=== PATIENT | female | born 1950 | race Caucasian/White ===

== ENCOUNTER → 2018-05-03 | Outpatient (CLI) | payer MEDICARE, MEDICAID ==
[2018-05-03 08:17] LABS: Basophils # (auto) 0.3 uL; Basophils % (auto) 2.6 % (0.0-2.0); Eosinophils # (auto) 0.1 uL; Eosinophils % (auto) 1.2 % (0.0-7.0); Hematocrit 47.3 % (36.0-46.0); Hemoglobin 15.4 g/dL (12.2-16.2); Lymphocytes # (auto) 2.3 uL; Lymphocytes % (auto) 20.4 % (10.0-50.0); Mean Corpuscular Hemoglobin 29.9 pg (28.0-32.0); Mean Corpuscular Hgb Conc. 32.5 g/dL (32.0-36.0); Monocytes # (auto) 0.7 uL; Monocytes % (auto) 5.8 % (0.0-12.0); Platelet Count (auto) 313 10^3/uL (140-450); Red Blood Cells 5.14 10^6/uL (4.0-5.20); Red Cell Distribution Width 14.9 % (11.8-14.3); White Blood Cell 11.4 10^3/uL (4.4-10.8)
[2018-05-03 08:56] LABS: Albumin 3.4 g/dL (3.4-5.0); BUN/Creatinine Ratio 14.8; Bilirubin, Total 0.4 mg/dL (0.2-1.0); Calcium 9.3 mg/dL (8.5-10.1); Potassium 3.8 mmol/L (3.5-5.1); Total Protein 7.4 g/dL (6.4-8.2)
[2018-05-03 09:15] LABS: Urine Bacteria FEW /hpf (None Seen); Urine Blood TRACE /uL (Negative); Urine Mucus FEW (None Seen); Urine Specific Gravity 1.028 (1.001-1.035); Urine WBC 20 /hpf (0 - 5)
[2018-05-04 09:08] LABS: Free T4 (Free Thyroxine) 0.84 ng/dL (0.89-1.76)
== END | disposition home or self-care (01) ==
LOC: LAB 07:30
PROVIDERS: ATTEND Internal Medicine
DX: I12.9 Hypertensive chronic kidney disease with stage 1 through stage 4 chronic kidney disease, or unspecified chronic kidney disease (principal); E11.22 Type 2 diabetes mellitus with diabetic chronic kidney disease; N18.3 Chronic kidney disease, stage 3 (moderate)
CPT/HCPCS: 36415; 80053; 80061; 81001; 82043; 82607; 83036; 84439; 84443; 84550; 85025; 85652

== ENCOUNTER → 2018-06-09 | Outpatient (CLI) | payer MEDICARE, MEDICAID | END | disposition home or self-care (01) | LOC: XYW 07:35 | PROVIDERS: ATTEND Internal Medicine | DX: I11.0 Hypertensive heart disease with heart failure (principal); I50.9 Heart failure, unspecified | CPT/HCPCS: 93306 ==

== ENCOUNTER → 2018-06-10 | Outpatient (CLI) | payer MEDICARE, MEDICAID | END | disposition home or self-care (01) | LOC: RT 12:17 | PROVIDERS: ATTEND Internal Medicine | DX: J44.9 Chronic obstructive pulmonary disease, unspecified (principal); I11.0 Hypertensive heart disease with heart failure; J96.10 Chronic respiratory failure, unspecified whether with hypoxia or hypercapnia; I50.9 Heart failure, unspecified | CPT/HCPCS: 36600; 82805 ==

== ENCOUNTER → 2018-07-05 | Outpatient (CLI) | payer MEDICARE, MEDICAID | END | disposition home or self-care (01) | LOC: XY 09:06 | PROVIDERS: ATTEND Internal Medicine Pulmonary Disease | DX: R06.02 Shortness of breath (principal) | CPT/HCPCS: 78582; A9540; A9558 ==

== ENCOUNTER 2018-10-15 10:47 | Emergency (ER) | payer OTHER, MEDICAID ==
[~2018-10-15] VITALS: Ht 165.1 cm; Wt 85.3 kg
[2018-10-15 12:04] LABS: Basophils # (auto) 0.1 uL; Basophils % (auto) 0.7 % (0.0-2.0); Eosinophils # (auto) 0.1 uL; Eosinophils % (auto) 0.6 % (0.0-7.0); Hematocrit 43.6 % (36.0-46.0); Hemoglobin 14.1 g/dL (12.2-16.2); Lymphocytes # (auto) 1.4 uL; Lymphocytes % (auto) 9.4 % (10.0-50.0); Mean Corpuscular Hgb Conc. 32.4 g/dL (32.0-36.0); Mean Corpuscular Volume 89.6 fL (80.0-100.0); Monocytes % (auto) 6.5 % (0.0-12.0); Neutrophils # (auto) 12.3 uL; Neutrophils % (auto) 82.8 % (37.0-80.0); Nucleated Red Blood Cells % 0.1 %; Platelet Count (auto) 295 10^3/uL (140-450); Red Blood Cells 4.87 10^6/uL (4.0-5.20); Red Cell Distribution Width 14.6 % (11.8-14.3); White Blood Cell 14.9 10^3/uL (4.4-10.8)
[2018-10-15 12:25] LABS: Anion Gap 9 (5-15); BUN/Creatinine Ratio 16.6; Blood Alcohol < 3.0 mg/dL (0-5); Blood Urea Nitrogen 24 mg/dL (7-18); Calcium 9.2 mg/dL (8.5-10.1); Carbon Dioxide 23 mmol/L (21-32); Chloride 107 mmol/L (98-107); GFR African American 46 mL/min; GFR Non-African American 38 mL/min; Glucose 115 mg/dL (74-106); Sodium 139 mmol/L (136-145)
[2018-10-15 12:26] LABS: Salicylate < 1.7 mg/dL (2.8-20.0)
[2018-10-15 12:29] LABS: Acetaminophen < 2.0 ug/mL (10-30)
[2018-10-15] MEDS ORDERED: ZOLPIDEM TARTRATE 5 MG TAB PO ONE (13:45)
[2018-10-15 14:06] LABS: Alcohol, Urine < 3.0 mg/dL (0-5); Amphetamine Screen, Urine NEGATIVE (NEGATIVE); Barbiturate Scree,Urine NEGATIVE (NEGATIVE); Benzodiazephine Screen, Urine NEGATIVE (NEGATIVE); Cannabinoid Screen, Urine NEGATIVE (NEGATIVE); Cocaine Screen, Urine NEGATIVE (NEGATIVE); Opiate Scree,Urine NEGATIVE (NEGATIVE); Phencyclidine Screen, Urine NEGATIVE (NEGATIVE)
[2018-10-15] MEDS ORDERED: SERT-160 PO (19:55)
[2018-10-15] MEDS ORDERED: PRAV20TA3 PO (19:55)
[2018-10-15] MEDS ORDERED: LISI40TA PO (19:55)
[2018-10-15] MEDS ORDERED: AMLO5TAB13 PO (19:55)
[2018-10-15] MEDS ORDERED: CALC667C PO (19:55)
[2018-10-15] MEDS ORDERED: INSLANTI SC (19:55)
[2018-10-15] MEDS ORDERED: FURO40TA PO (19:55)
[2018-10-15] MEDS ORDERED: GABA300C10 PO (19:55)
[2018-10-15] MEDS ORDERED: INSUINJ18 SC (19:55)
[2018-10-15] MEDS ORDERED: ASPI81CH43 PO (19:55)
[2018-10-15] MEDS ORDERED: GLIP-116 PO (19:55)
[2018-10-15] MEDS ORDERED: CHOL20007 OR (19:55)
[2018-10-15] MEDS ORDERED: glipiZIDE 5 MG TAB PO ONE (22:15)
[2018-10-15] MEDS ORDERED: HYDROcodone-ACET 10/325MG TAB PO ONE (22:15)
[2018-10-15] MEDS ORDERED: ASPirin 81 mg TAB PO ONE (22:15)
[2018-10-15] MEDS ORDERED: INSULIN LANTUS (GLARGINE) 1 /0.01ml (100units/ml) SC ONE (22:15)
[2018-10-16] MEDS ORDERED: IBUPROFEN 800 MG TAB PO ONE (06:30)
[2018-10-16] MEDS ORDERED: HALOPERIDOL 1 MG TAB PO SCH (12:00)
[2018-10-16 15:56] VITALS: BP 177/83
[2018-10-16] MEDS ORDERED: PRAVASTATIN SODIUM 20 MG TAB PO SCH (22:00)
[2018-10-16] MEDS ORDERED: QUEtiapine FUMARATE 25 MG TAB PO SCH (22:00)
[2018-10-16] MEDS ORDERED: HALOPERIDOL 5 MG TAB PO SCH (22:00)
== END 2018-10-15 16:12 | disposition short-term general hospital (02) ==
LOC: ER 10:47 → EDBD 10:47 → ER 16:12
DX: R45.851 Suicidal ideations (principal); E11.22 Type 2 diabetes mellitus with diabetic chronic kidney disease; I12.9 Hypertensive chronic kidney disease with stage 1 through stage 4 chronic kidney disease, or unspecified chronic kidney disease; N18.9 Chronic kidney disease, unspecified; J44.9 Chronic obstructive pulmonary disease, unspecified; Z87.891 Personal history of nicotine dependence; Z88.0 Allergy status to penicillin
CPT/HCPCS: 36415; 73660; 80048; 80307; 80320; 80329; 82962; 85025; 94761; 99285; J1815

== ENCOUNTER 2019-10-01 14:14 | Emergency (ER) | payer MEDICAID, MEDICARE, OTHER ==
[~2019-10-01] VITALS: Ht 165.1 cm; Wt 127.0 kg
[~2019-10-01 14:14] MED LIST: AMLO5TAB15 PO; ASPI81CH43 PO; CALC667C PO; CHOL20007 OR; FURO1TAB31 PO; GABA300C10 PO; GLIP10TA9 PO; INSLANTI SC; INSUINJ18 SC; LISI40TA PO; PRAV20TA3 PO; SERT-160 PO
[2019-10-01 16:09] LABS: Basophils # (auto) 0.1 uL; Basophils % (auto) 1.2 % (0.0-2.0); Eosinophils # (auto) 0.1 uL; Eosinophils % (auto) 0.9 % (0.0-7.0); Hematocrit 47.2 % (36.0-46.0); Hemoglobin 15.7 g/dL (12.2-16.2); Lymphocytes % (auto) 16.4 % (10.0-50.0); Mean Corpuscular Hemoglobin 31.6 pg (28.0-32.0); Mean Corpuscular Hgb Conc. 33.3 g/dL (32.0-36.0); Mean Corpuscular Volume 94.9 fL (80.0-100.0); Monocytes # (auto) 0.7 uL; Monocytes % (auto) 5.4 % (0.0-12.0); Neutrophils # (auto) 9.1 uL; Neutrophils % (auto) 76.1 % (37.0-80.0); Nucleated Red Blood Cells % 0.1 %; Platelet Count (auto) 322 10^3/uL (140-450); Red Blood Cells 4.98 10^6/uL (4.0-5.20); Red Cell Distribution Width 13.1 % (11.8-14.3)
[2019-10-01 16:24] LABS: Albumin 3.6 g/dL (3.4-5.0); Calcium 9.9 mg/dL (8.5-10.1); Potassium 4.3 mmol/L (3.5-5.1)
[2019-10-01 16:29] LABS: BUN/Creatinine Ratio 14.1; Bilirubin, Total 0.2 mg/dL (0.2-1.0); Total Protein 7.5 g/dL (6.4-8.2)
[2019-10-01 18:28] LABS: Salicylate 2.4 mg/dL (2.8-20.0)
[2019-10-01 18:49] LABS: Acetaminophen < 2.0 ug/mL (10-30)
[2019-10-02] VITALS: BP 158/66
== END 2019-10-02 00:05 | disposition home or self-care (01) ==
LOC: ER 14:32
DX: F41.9 Anxiety disorder, unspecified (principal); R45.851 Suicidal ideations; F31.9 Bipolar disorder, unspecified; E78.5 Hyperlipidemia, unspecified; E11.65 Type 2 diabetes mellitus with hyperglycemia; E11.21 Type 2 diabetes mellitus with diabetic nephropathy; I11.0 Hypertensive heart disease with heart failure; I50.9 Heart failure, unspecified; J44.9 Chronic obstructive pulmonary disease, unspecified; Z59.0 Homelessness; Z87.891 Personal history of nicotine dependence
CPT/HCPCS: 36415; 71046; 80053; 80329; 83735; 84443; 85025